=== PATIENT | female | born 1990 | race Caucasian/White ===

== ENCOUNTER 2018-08-16 20:31 | Emergency (ER) | payer BC, OTHER ==
[~2018-08-16] VITALS: Ht 165.1 cm; Wt 65.0 kg
[2018-08-16 20:33] VITALS: BP 140/92
[2018-08-16] MEDS ORDERED: FAMOTIDINE 20 MG TABLET ONE (20:49)
[2018-08-16] MEDS ORDERED: hydrOXyzine 50MG TABLET PO ONE (21:00)
[2018-08-16] MEDS ORDERED: FAMOTIDINE 20 MG TABLET PO ONE (21:00)
[2018-08-16] MEDS ORDERED: ALBUTEROL/IPRATROPIUM 2.5MG/0.5MG, 3 ML NPPB ONE (21:30)
[2018-08-16] MEDS ORDERED: ALBUTEROL/IPRATROPIUM 2.5MG/0.5MG, 3 ML ONE (21:50)
--- NOTE | 2018-08-16 21:50 | NUR ---
Pt reports "feeling better" req discharge, pt educated on poc (continue to watch for approx 45more min to make sure reaction doesnt return)
--- NOTE | 2018-08-16 21:53 | NUR ---
Pt requested RT treatment, states she has albuterol inhaler at home, hasnt used it in a few days, states she thinks that will help her breath better. Resp at bedside, pt refused treatment. PA aware
== END 2018-08-16 22:18 | disposition home or self-care (01) ==
LOC: ED 22:00
DX: T78.3XXA Angioneurotic edema, initial encounter (principal); T78.1XXA Other adverse food reactions, not elsewhere classified, initial encounter; X58.XXXA Exposure to other specified factors, initial encounter
CPT/HCPCS: 99284; J7512